=== PATIENT | female | born 1975 | race Caucasian/White ===

== ENCOUNTER 2018-07-14 10:03 | Emergency (ER) | payer MEDICAID ==
[~2018-07-14] VITALS: Ht 149.9 cm; Wt 72.1 kg
[~2018-07-14 10:03] MED LIST: ANT12.5 PO; FIORICET1 TAB PO
[2018-07-14 10:08] VITALS: Ht 149.9 cm; Wt 72.1 kg
[2018-07-14 13:52] VITALS: BP 101/61
== END 2018-07-14 13:52 | disposition home or self-care (01) ==
LOC: ED 10:03
DX: O23.41 Unspecified infection of urinary tract in pregnancy, first trimester (principal); Z3A.01 Less than 8 weeks gestation of pregnancy
CPT/HCPCS: J0696

== ENCOUNTER 2019-02-06 03:05 | Emergency (ER) | payer MEDICAID ==
[~2019-02-06] VITALS: Ht 160 cm; Wt 61.2 kg
[2019-02-06 03:09] VITALS: Ht 160 cm; Wt 61.2 kg
[2019-02-06 06:42] VITALS: BP 128/79
== END 2019-02-06 06:43 | disposition home or self-care (01) ==
LOC: ED 03:05
DX: S05.12XA Contusion of eyeball and orbital tissues, left eye, initial encounter (principal); Y04.8XXA Assault by other bodily force, initial encounter; Y93.89 Activity, other specified; Y92.89 Other specified places as the place of occurrence of the external cause; Y99.8 Other external cause status